=== PATIENT | female | born 1965 | race Caucasian/White ===

== ENCOUNTER 2019-12-10 01:42 | Inpatient (IN) | payer OTHER ==
[~2019-12-10] VITALS: Ht 154.9 cm; Wt 75.3 kg
[2019-12-10 01:44] VITALS: Ht 154.9 cm; Wt 75.3 kg
[2019-12-10 02:13] LABS: PLATELET COUNT 142 x10^3mcL (130-400); RED CELL DISTRIBUTION WIDTH 13.1 % (11.5-14.5)
[2019-12-10 02:37] LABS: BAND NEUTROPHIL 5 % (0-10); SEGMENTED NEUTROPHILS 70 % (37-75)
[2019-12-10 02:38] LABS: rbc morphology (normal/abnorm) NORMAL (NORMAL)
[2019-12-10 02:48] LABS: ALKALINE PHOSPHATASE 109 U/L (46-116); ALT/SGPT 45 U/L (14-59); AST/SGOT 82 U/L (15-37); BILIRUBIN TOTAL 0.45 mg/dL (0.20-1.00); CALCIUM 8.3 mg/dL (8.5-10.1); CHLORIDE SERUM 100 mmol/L (98-107); CREATININE SERUM 3.8 mg/dL (0.6-1.0); GFR1 13 mL/min; GLUCOSE SERUM 100 mg/dL (74-106); SODIUM SERUM 136 mmol/L (136-145)
[2019-12-10 02:52] LABS: ALBUMIN 2.9 g/dL (3.4-5.0)
[2019-12-10] MEDS ORDERED: SEROQUEL25 MG (03:58)
[2019-12-10] MEDS ORDERED: ZESTRIL2.5 MG (03:59)
[2019-12-10] MEDS ORDERED: CYMBALTA20 M1 PO (03:59)
[2019-12-10 04:32] LABS: MAGNESIUM 2.5 mg/dL (1.8-2.4); PHOSPHOROUS 7.5 mg/dL (2.5-4.9)
[2019-12-10 04:33] LABS: CHOLESTEROL/HDL RATIO 1.7
[2019-12-10 04:36] LABS: T3 TOTAL 0.51 ng/mL
[2019-12-10 04:38] LABS: FREE T4 0.77 ng/dL (0.76-1.46)
[2019-12-10 04:42] LABS: FREE THYROXINE INDEX 1.3 ug/dL (1.4-4.5); T4(THYROXINE) 3.7 ug/dL (4.7-13.3)
[2019-12-10 06:07] LABS: UA SPECIFIC GRAVITY 1.025 (1.005-1.035); microscopic required? YES; urine erythrocyte 1+ (NEGATIVE)
[2019-12-10 06:18] LABS: AMPHETAMINE QUAL UR NONE DETECTED (See below)
[2019-12-10 08:35] VITALS: BP 135/69
[2019-12-10 09:04] LABS: BASOPHIL % 0.8 % (0-2); RED CELL DISTRIBUTION WIDTH 13.6 % (11.5-14.5)
[2019-12-10 09:09] LABS: PLATELET COUNT 107 x10^3mcL (130-400)
[2019-12-10 09:28] LABS: CALCIUM 7.4 mg/dL (8.5-10.1); CREATININE SERUM 3.1 mg/dL (0.6-1.0); MAGNESIUM 2.1 mg/dL (1.8-2.4); PHOSPHOROUS 5.5 mg/dL (2.5-4.9)
[2019-12-10 17:04] VITALS: BP 113/80
[2019-12-10 20:00] VITALS: BP 144/82
[2019-12-11 06:13] VITALS: BP 159/89
[2019-12-11 07:01] LABS: RED CELL DISTRIBUTION WIDTH 13.7 % (11.5-14.5)
[2019-12-11 07:11] LABS: PLATELET COUNT 92 x10^3mcL (130-400)
[2019-12-11 07:18] LABS: CARBON DIOXIDE 18.5 mmol/L (21-32); CREATININE SERUM 2.5 mg/dL (0.6-1.0); MAGNESIUM 1.9 mg/dL (1.8-2.4); PHOSPHOROUS 3.2 mg/dL (2.5-4.9)
[2019-12-11 07:24] VITALS: BP 138/82
[2019-12-11 11:55] VITALS: BP 145/98
[2019-12-11 13:16] LABS: ATYPICAL LYMPH 0 %; BAND NEUTROPHIL 1 % (0-10); BASOPHIL 0 % (0-2); MONOCYTE 10 % (0-7); SEGMENTED NEUTROPHILS 79 % (37-75)
[2019-12-11 13:17] LABS: PLATELET MORPHOLOGY PLATELETS DECREASED; rbc morphology (normal/abnorm) ABNORMAL (NORMAL)
[2019-12-11 15:30] VITALS: BP 160/99
[2019-12-11 19:21] VITALS: BP 143/72
[2019-12-12 06:05] VITALS: BP 137/80
[2019-12-12 07:30] LABS: CARBON DIOXIDE 20.7 mmol/L (21-32); CREATININE SERUM 1.9 mg/dL (0.6-1.0); POTASSIUM SERUM 3.5 mmol/L (3.5-5.1)
[2019-12-12 07:33] VITALS: BP 140/90
[2019-12-12 08:27] LABS: BASOPHIL % 0.1 % (0-2); RED CELL DISTRIBUTION WIDTH 13.7 % (11.5-14.5)
[2019-12-12 08:28] LABS: PLATELET COUNT 81 x10^3mcL (130-400)
[2019-12-12 12:38] VITALS: BP 121/100
[2019-12-12 17:54] VITALS: BP 150/87
[2019-12-12 22:32] VITALS: BP 146/99
[2019-12-13 05:17] VITALS: BP 143/91
[2019-12-13 06:05] LABS: BASOPHIL % 0.5 % (0-2); RED CELL DISTRIBUTION WIDTH 13.6 % (11.5-14.5)
[2019-12-13 06:48] LABS: CALCIUM 8.1 mg/dL (8.5-10.1); CARBON DIOXIDE 23.4 mmol/L (21-32); CREATININE SERUM 1.7 mg/dL (0.6-1.0); MAGNESIUM 1.6 mg/dL (1.8-2.4); POTASSIUM SERUM 3.4 mmol/L (3.5-5.1)
[2019-12-13 07:26] LABS: PLATELET COUNT 74 x10^3mcL (130-400)
[2019-12-13 09:02] VITALS: BP 148/92
[2019-12-13 11:55] VITALS: BP 145/99
[2019-12-13 17:18] VITALS: BP 164/114
[2019-12-13 18:04] VITALS: BP 138/85
[2019-12-13 20:05] VITALS: BP 158/94
[2019-12-14 05:59] VITALS: BP 145/90
[2019-12-14] MEDS ORDERED: OXCARBAZEPINE150 M1 PO (12:03)
[2019-12-14] MEDS ORDERED: SYN25 PO (12:04)
== END 2019-12-14 16:53 | disposition home or self-care (01) | DRG 52 ==
LOC: ED 01:42 → DU 03:32
PROVIDERS: Emergency Medicine; ADMIT Internal Medicine
DX: G92 Toxic encephalopathy (principal); E43 Unspecified severe protein-calorie malnutrition; N17.9 Acute kidney failure, unspecified; N18.4 Chronic kidney disease, stage 4 (severe); N39.0 Urinary tract infection, site not specified; I12.9 Hypertensive chronic kidney disease with stage 1 through stage 4 chronic kidney disease, or unspecified chronic kidney disease; F10.129 Alcohol abuse with intoxication, unspecified; Y90.0 Blood alcohol level of less than 20 mg/100 ml; E83.41 Hypermagnesemia; E78.5 Hyperlipidemia, unspecified; G40.909 Epilepsy, unspecified, not intractable, without status epilepticus; T50.995A Adverse effect of other drugs, medicaments and biological substances, initial encounter; F33.9 Major depressive disorder, recurrent, unspecified; E83.39 Other disorders of phosphorus metabolism; Q61.3 Polycystic kidney, unspecified; E03.9 Hypothyroidism, unspecified; E87.5 Hyperkalemia; Z68.24 Body mass index [BMI] 24.0-24.9, adult; I25.2 Old myocardial infarction; Y92.018 Other place in single-family (private) house as the place of occurrence of the external cause; Z88.0 Allergy status to penicillin
CPT/HCPCS: 83880; 84439; 97116-GP; G0378; G0480; J1815; J2060; J3490; J7030; Q0092